=== PATIENT | male | born 2000 | race Caucasian/White ===

== ENCOUNTER 2021-05-27 22:12 | Emergency (ER) | payer BC, SELFPAY ==
[2021-05-27] MEDS ORDERED: Ibuprofen 200 MG TAB ONE (22:28)
[2021-05-28 15:21] LABS: SARS-CoV-2 PCR by NAA DETECTED (NotDetected)
== END 2021-05-27 22:51 | disposition home or self-care (01) ==
LOC: NAV ERS 22:12
DX: U07.1 COVID-19 (principal); F17.210 Nicotine dependence, cigarettes, uncomplicated; F17.220 Nicotine dependence, chewing tobacco, uncomplicated
CPT/HCPCS: 87804; 99284; U0003; U0005